=== PATIENT | female | born 1955 | race Caucasian/White ===

== ENCOUNTER → 2018-06-20 19:04 | Outpatient (CLI) | payer OTHER ==
[2015-03-19 01:29] VITALS: BMI 43.8
[~2018-06-20 19:04] MED LIST: ISOSORBIDE MONO30 M1 PO; KLOR-CON 1010 MEQ PO; LASIX40 MG PO; LYRICA25 MG PO; METOPROLOL TART50 MG PO; NAPROSYN500 MG PO; OXYCODONE HCL5 MG PO; PRILOSEC20 MG PO; SKELAXIN800 MG PO; ULTRAM50 MG PO
== END | disposition home or self-care (01) ==
LOC: D.MAMMO 11:30
DX: Z12.31 Encounter for screening mammogram for malignant neoplasm of breast (principal)